=== PATIENT | male | born 1975 | race Caucasian/White ===

== ENCOUNTER 2016-11-25 16:04 | Emergency (ER) | payer OTHER ==
[~2016-11-25] VITALS: Ht 172.7 cm; Wt 74.8 kg
[~2016-11-25 16:04] MED LIST: AMOXICILLIN PO; NAPROSYN PO; PEN-VEE K PO; TYLENOL #3 PO; [UNRECOGNIZED DRUG - OTHER] TOP
== END 2016-11-25 16:45 | disposition home or self-care (01) ==
LOC: CED 16:04 → CFTX 16:04
DX: K02.9 Dental caries, unspecified (principal); F17.210 Nicotine dependence, cigarettes, uncomplicated
CPT/HCPCS: 99282